=== PATIENT | male | born 1945 | race African-American/Black ===

== ENCOUNTER 2021-05-09 05:47 | Emergency (ER) | payer MEDICARE ==
[~2021-05-09] VITALS: Ht 188 cm; Wt 90.7 kg
[~2021-05-09 05:47] MED LIST: ASPI-543 PO; ATOR20TA50 PO; CLON0.5T3 PO; ENAL10TA12 PO; METO25TA5 PO; OXCA600T3 PO; PRA1C PO
[2021-05-09 07:36] LABS: Basophils # (auto) 0 10 ^3/uL (0-0.2); Basophils % (auto) 0.6 % (0.0-2.0); Eosinophils # (auto) 0.1 10 ^3/uL (0-0.8); Eosinophils % (auto) 1.2 % (0.0-7.0); Hemoglobin 15.5 g/dL (13.5-17.5); Lymphocytes # (auto) 1.5 10 ^3/uL (0.4-5.4); Lymphocytes % (auto) 20.7 % (10.0-50.0); Mean Corpuscular Hemoglobin 29.6 pg (28.0-32.0); Mean Corpuscular Hgb Conc. 33.7 g/dL (32.0-36.0); Mean Corpuscular Volume 87.7 fL (80.0-100.0); Monocytes # (auto) 0.6 10 ^3/uL (0-1.3); Monocytes % (auto) 8.4 % (0.0-12.0); Neutrophils # (auto) 5.1 10 ^3/uL (1.6-8.6); Neutrophils % (auto) 69.1 % (37.0-80.0); Red Blood Cells 5.24 10^6/uL (4.5-5.90); Red Cell Distribution Width 15.3 % (11.8-14.3); White Blood Cell 7.3 10^3/uL (4.4-10.8)
[2021-05-09 07:38] LABS: Albumin 3.4 g/dL (3.4-5.0); Anion Gap 7 (5-15); BUN/Creatinine Ratio 9.8; Blood Urea Nitrogen 22 mg/dL (7-18); Carbon Dioxide 23 mmol/L (21-32); Chloride 103 mmol/L (98-107); GFR African American 37 mL/min; GFR Non-African American 31 mL/min; Glucose 109 mg/dL (74-106); Potassium 4.1 mmol/L (3.5-5.1); Sodium 133 mmol/L (136-145)
[2021-05-09 07:43] LABS: Alanine Aminotransferase 51 U/L (16-61); Alkaline Phosphatase 107 U/L (45-117); Aspartate Aminotransferase 23 U/L (15-37); Bilirubin, Total 0.3 mg/dL (0.2-1.0); Total Protein 8.3 g/dL (6.4-8.2)
[2021-05-09 18:02] LABS: Urine Bacteria MANY /hpf (None Seen); Urine Blood 1+ /uL (Negative); Urine Mucus FEW (None Seen); Urine Specific Gravity 1.014 (1.001-1.035); Urine WBC 512 /hpf (0 - 3)
[2021-05-09 23:48] VITALS: BP 144/93
== END 2021-05-10 01:05 | disposition home or self-care (01) ==
LOC: ER 05:47 → EDBD 05:47 → ER 20:17
DX: R53.1 Weakness (principal); F03.90 Unspecified dementia, unspecified severity, without behavioral disturbance, psychotic disturbance, mood disturbance, and anxiety; I10 Essential (primary) hypertension; E78.5 Hyperlipidemia, unspecified; Z86.73 Personal history of transient ischemic attack (TIA), and cerebral infarction without residual deficits; Z79.82 Long term (current) use of aspirin; Z79.899 Other long term (current) drug therapy
CPT/HCPCS: 36415; 71045; 80053; 81001; 83605; 83880; 84484; 85025; 93005